=== PATIENT | male | born 1975 | race Caucasian/White ===

== ENCOUNTER 2018-06-21 23:38 | Emergency (ER) | payer OTHER ==
[2018-06-22] MEDS ORDERED: Acetaminophen 500 MG TAB ONE ×2 (00:10→00:12)
[2018-06-22 00:17] LABS: Mean Corpuscular HGB CONC 34.7 g/dL (32.0-36.0); Mean Corpuscular Hemoglobin 30.8 pg (27.0-31.0); Mean Corpuscular Volume 88.8 fL (78.0-98.0); Mean Platelet Volume 7.5 fL (7.4-10.4); Platelet Count 168 thou/uL (130-400); RBC Distribution Width 11.9 % (11.5-14.5); Red Blood Cell (RBC) Count 4.55 mill/uL (4.70-6.10); White Blood Cell (WBC) Count 22.4 thou/uL (4.8-10.8)
[2018-06-22 00:27] LABS: ALT (SGPT) 12 U/L (8-55); AST (SGOT) 14 U/L (5-34); Albumin 3.9 g/dL (3.5-5.0); Alkaline Phosphatase 80 U/L (40-150); Anion Gap 12 mmol/L (10-20); BUN (Urea Nitrogen) 12 mg/dL (8.9-20.6); Bilirubin, Total 0.8 mg/dL (0.2-1.2); Calc. Creatinine Clearance 0 mL/min (70-130); Calcium 8.9 mg/dL (7.8-10.44); Carbon Dioxide 21 mmol/L (22-29); Chloride 105 mmol/L (98-107); Estimated GFR-MDRD 79; Globulin 2.8 g/dL (2.4-3.5); Glucose 122 mg/dL (70-105); Potassium 3.4 mmol/L (3.5-5.1); Protein, Total 6.7 g/dL (6.0-8.3); Sodium 135 mmol/L (136-145)
[2018-06-22 00:37] LABS: Band 2 % (5-11); Lymphocytes 4 % (21-51); MDiff Complete? YES; Monocytes 3 % (0-10); Neutrophil 90 % (42-75); Platelet Morphology Comment Appears Adequate; RBC Morphology Normal; Reactive Lymphocytes 1 % (0-10); Toxic Granulation SLIGHT
[2018-06-22 00:40] LABS: Clarity Hazy (Clear)
[2018-06-22 00:41] LABS: Bilirubin Small (Negative); Blood, Urine Negative (Negative); Glucose, Urine (Dipstick) Negative (Negative); Leukocyte Negative (Negative); Nitrite Negative (Negative); Protein, Urine (Dipstick) 100 mg/dL (Neg-Trace); Specific Gravity, Urine 1.025 (1.005-1.030); pH, Urine 5.5 (5.0-9.0)
[2018-06-22 00:48] LABS: Bacteria/HPF Rare-Few HPF (None Seen); RBC/HPF 0-3 HPF (0-3); Squamous Epithelial 0-3 HPF (0-3); WBC/HPF 0-3 HPF (0-3)
[2018-06-22 00:49] LABS: Crystals/HPF 1+ AMORPH URATES HPF (Negative); Other Microscopic Description 1+ MUCUS
== END 2018-06-22 01:16 | disposition short-term general hospital (02) ==
LOC: BURERS 23:38
DX: L03.314 Cellulitis of groin (principal)
CPT/HCPCS: 36415; 80053; 81003; 81015; 83605; 85025; 87040; 87804; 96361; 96374; J3370

== ENCOUNTER 2021-01-02 22:11 | Emergency (ER) | payer OTHER ==
[2021-01-02] MEDS ORDERED: Tetracaine 0.5% PF 4 ML BOT ONE ×2 (22:42→22:44)
[2021-01-02] MEDS ORDERED: Fluorescein Opthalmic Strip ONE ×2 (22:42→22:44)
== END 2021-01-02 22:57 | disposition home or self-care (01) ==
LOC: BURERS 22:11
DX: T54.1X1A Toxic effect of other corrosive organic compounds, accidental (unintentional), initial encounter (principal); H10.211 Acute toxic conjunctivitis, right eye; F17.290 Nicotine dependence, other tobacco product, uncomplicated
CPT/HCPCS: 99282